=== PATIENT | female | born 1945 | race Caucasian/White ===

== ENCOUNTER 2019-11-17 19:06 | Inpatient (IN) | payer MEDICARE, SELFPAY ==
[2019-11-17 19:21] VITALS: BP 180/123; PULSE 90; RESP 18; TEMP 38.8; O2SAT 95; BMI 29.2
--- NOTE | 2019-11-17 19:34 | ED_ITS ---
Entered by Sushma Saba, acting as scribe for Gilda Minor HPI - General Adult General: Chief complaint: General Medical Stated complaint: BACK PAIN Time Seen by Provider: 11/17/19 19:34 Source: patient and family Mode of arrival: wheelchair History of Present Illness: HPI narrative: 74 y/o female presents to the ED with complaint of back pain. Family states she had lumbar sx at [facility] and was released on Sunday. states she was doing well after sx and was alert and able to walk without assistance Sunday and Sunday. Today she has had increased lethargy/AMS, pain and difficulty ambulating. 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 has been checking her incision site regularly and states it seems to be more red today. MD complaint: Back pain/Post Op Onset (ago): day(s) (today) Location: back Severity: moderate Pain Consistency: constant Relieving factors: none Exacerbating factors: movement Associated symptoms: Deny chest pain, dyspnea, nausea, rash, palpitations, syncope or vomiting Review of Systems General: Reports: other (negative unless marked) Eyes: Denies: change in vision or blurry vision ENMT: Denies: throat pain, painful swallowing, hoarseness, ear pain, ear discharge, Change in hearing or nasal discharge Card: Denies: chest pain, palpitations, irregular heart rhythm, syncope, pre- syncope, shortness of breath on exertion or shortness of breath when lying down Resp: Denies: shortness of breath, productive cough, non-productive cough, wheezing, coughing up blood or chest congestion GI: Denies: abdominal pain, nausea, vomiting, vomiting blood, coffee grounds in vomit, diarrhea, constipation, cramping, blood in stool or black tarry stool : Denies: flank pain, painful urination, urinary frequency, urinary urgency, decreased urine ouput, urinary incontinence or blood in urine Skin/Breast: Denies: rash, skin tenderness or yellow skin Endo: Denies: excessive thirst, tired all the time, cold intolerance, excessive sweating, flushing or hot flashes Raza/Lymph: Denies: easy bruising, easy bleeding, petechiae or enlarged lymph nodes All/Imm: Denies: hives, throat swelling, tongue swelling, facial swelling or acute wheezing PFSH ED PFSH: Social History Smoking and tobacco status: never smoked Physical Exam Const: GENERAL APPEARANCE: well kempt and well developed HENMT: COMMON NORMALS: normocephalic, head/scalp atraumatic, hearing grossly normal bilaterally, external ears normal, EAC's normal, external nose normal and moist oral mucous membranes HEAD & SCALP: normal to inspection, normocephalic and atraumatic FACE & SINUS: normal facial exam and face symmetric NOSE: external nose normal and nares normal EXTERNAL EAR: Yes external ears normal EXTERNAL AUDITORY CANAL: EAC's normal MOUTH: oral and palatal mucosa normal and tongue normal Eye: COMMON NORMALS: PERRL, EOMs intact bilaterally, conjunctivae normal and no scleral icterus GENERAL EYE: normal appearance of both eyes and normal light reflex CONJUNCTIVA: Yes conjunctivae normal SCLERA: sclerae normal CORNEA: Yes corneas normal PUPIL: Yes PERRL DIRECT OPHTHALMOSCOPY: Yes normal light reflex Neck/C-Spine: COMMON NORMALS: full ROM, no lymphadenopathy, supple, no meningeal signs and no JVD GENERAL: Yes normal visual inspection and Yes trachea midline CERVICAL SPINE: Yes cervical ROM normal Chest: COMMONS NORMALS: inspection of chest normal and palpation of chest normal Resp: COMMON NORMALS: normal respiratory effort, no retractions, no use of accessory muscles and clear to auscultation bilaterally EFFORT & INSPECTION: Yes able to speak in complete sentences AUSCULTATION: clear to auscultation bilaterally Cardio: COMMON NORMALS: no JVD, regular rate, regular rhythm, S1 normal heart sound, S2 normal heart sound, no gallops, no clicks, no murmurs and no rub JUGULAR VENOUS DISTENTION: no JVD RATE: regular rate RHYTHM: regular rhythm HEART SOUNDS: S1 normal and S2 normal GI: COMMON NORMALS: soft to palpation, non-tender, no hepatosplenomegaly and no masses INSPECTION: Yes normal to inspection PALPATION: Yes soft and Yes no hepatosplenomegaly Neuro: COMMON NORMALS: CN's II-XII intact bilaterally, moves all extremities, no focal motor deficits and no sensory deficits noted MENINGEAL SIGNS: Yes no meningeal signs Psych: APPEARANCE: Yes well kempt Skin: COMMON NORMALS: no rashes or lesions noted, skin turgor normal, no jaundice, no petechiae and no mottling GENERAL SKIN EXAM: no rashes or lesions noted and turgor normal Course Vital Signs: Vital signs: Vital Signs Temperature 101.9 F H 11/17/19 19:21 Pulse Rate 77 11/18/19 00:10 Respiratory Rate 14 11/18/19 00:10 Blood Pressure 116/62 11/18/19 00:10 Pulse Oximetry 99 11/18/19 00:10 MDM - General Adult MDM Narrative: Medical decision making narrative: Mrs. Whittington is a nice 74-year-old female who comes in with fever and altered mental status. The patient recently had surgery on her back but CT scanning does not reveal any evidence of abscess. The patient's overlying skin looks well without any evidence of cellulitis at this time. The patient is able to ambulate here does not demonstrate any sign of cauda equina type syndrome. The patient denies headache or stiff neck to suggest meningitis. Clinically her chest x-ray looks like possible left perihilar infiltrate. The patient does sound rhonchorous on exam without rails to my examination. Viral syndrome such as flu was even possible. The case was endorsed to Dr. Solorio who agrees to admission. The patient has been covered with broad-spectrum antibiotics including Primaxin and vancomycin. She agrees to admit and further care will be managed by her. Lab Data: Attestation: I reviewed the patient's lab results. Labs: Lab Results 11/17/19 11/17/19 11/17/19 Range/Units 20:16 20:16 20:16 WBC 6.4 (4.0-10.0) 10^3/ uL RBC 2.97 L (4.1-5.3) 10^6/u L Hgb 8.4 L (11.5-15.3) g/dL Hct 26.9 L (37.0-47.0) % MCV 90.6 (81-99) fL MCH 28.3 (28.0-34.0) pg MCHC 31.2 (30.0-36.0) g/dL RDW 17.2 H (12.1-15.1) % Plt Count 247 (130-400) 10^3/c mm MPV 10.8 H (7.4-10.4) fL Total Counted 100 (0-100) Segmented Neutroph ils 66 % Lymphocytes (Manua l) 29 % Monocytes (Manual) 3.0 % Absolute Monocytes 0.2 (0.1-0.6) 10^3/c mm Eosinophils (Manua l) 2 % Absolute Eosinophi ls 0.1 (0.0-0.7) 10^3/c mm Platelet Estimate Normal (Normal) Hypochromasia 1+ H Poikilocytosis 1+ H Anisocytosis 1+ H Ovalocytes 1+ H PT 15.70 H (10.5-13.3) SECO NDS INR 1.21 H (0.8-1.2) Specimen Type Sample Site ABG pH (7.35-7.45) ABG pCO2 (35-45) mmHg ABG pO2 (80.0-100.0) mmH g ABG HCO3 (22-26) mmol/L ABG Base Excess (-2.0-2.0) mmol/ L Jensen Test Hematocrit (37-47) % O2 Delivery Device Brake Operator Helper ID Sodium 140 (136-145) mmol/L Potassium 3.0 L (3.5-5.1) mmol/L Chloride 103 (98-107) mmol/L Carbon Dioxide 24 (22-29) mmol/L Anion Gap 16.0 (5-19) BUN 11 (8-23) mg/dL Creatinine 0.7 (0.5-0.9) mg/dL Glucose 101 (65-115) mg/dL Lactic Acid (0.5-2.2) mmol/L Calcium 8.8 (8.5-10.5) mg/dL Magnesium 1.6 L (1.7-2.3) mg/dL Total Bilirubin 0.7 (0.15-1.2) mg/dL AST 36 H (0-32) U/L ALT 14 (0-33) U/L Alkaline Phosphata se 65 (35-105) IU/L Ammonia (11-51) umol/L Troponin T Baselin e (0-10) ng/mL Troponin T [address] [place] (0-10) ng/mL Delta Troponin T (0-10) ABS# NT-Pro-B Natriuret Pep (0-450) pg/mL Total Protein 5.9 L (6.6-8.7) g/dL Albumin 2.7 L (3.5-5.2) g/dL Globulin 3.2 (1.3-4.6) g/dL Lipase 7 L (13-60) U/L Urine Color (Yellow) Urine Appearance (CLEAR) Urine pH (5-7) Ur Specific Gravit y (1.005-1.030) Urine Protein (Negative) Urine Glucose (UA) (Normal) Urine Ketones (Negative) Urine Occult Blood (Negative) Urine Nitrate (Negative) Urine Bilirubin (NEGATIVE) Urine Urobilinogen (Negative) mg/dL Ur Leukocyte Mckenzie ase (Negative) Urine RBC (0-2) /hpf Urine WBC (0-5) /hpf Ur Squamous Epith Cells (0-5) Urine Bacteria (NONE) Urine Mucus Urine Opiates Scre en (Negative) ng/mL Ur Barbiturates Sc reen (Negative) ng/mL Ur Phencyclidine S crn (Negative) ng/mL Ur Amphetamines Sc reen (Negative) ng/mL U Benzodiazepines Scrn (Negative) ng/mL Urine Cocaine Scre en (Negative) ng/mL U Marijuana (THC) Screen (Negative) ng/mL Influenza Type A A g (Negative) POC Influenza B Ag (Negative) 11/17/19 11/17/19 11/17/19 Range/Units 20:16 20:16 20:16 WBC (4.0-10.0) 10^3/ uL RBC (4.1-5.3) 10^6/u L Hgb (11.5-15.3) g/dL Hct (37.0-47.0) % MCV (81-99) fL MCH (28.0-34.0) pg MCHC (30.0-36.0) g/dL RDW (12.1-15.1) % Plt Count (130-400) 10^3/c mm MPV (7.4-10.4) fL Total Counted (0-100) Segmented Neutroph ils % Lymphocytes (Manua l) % Monocytes (Manual) % Absolute Monocytes (0.1-0.6) 10^3/c mm Eosinophils (Manua l) % Absolute Eosinophi ls (0.0-0.7) 10^3/c mm Platelet Estimate (Normal) Hypochromasia Poikilocytosis Anisocytosis Ovalocytes PT (10.5-13.3) SECO NDS INR (0.8-1.2) Specimen Type Sample Site ABG pH (7.35-7.45) ABG pCO2 (35-45) mmHg ABG pO2 (80.0-100.0) mmH g ABG HCO3 (22-26) mmol/L ABG Base Excess (-2.0-2.0) mmol/ L Jensen Test Hematocrit (37-47) % O2 Delivery Device Brake Operator Helper ID Sodium (136-145) mmol/L Potassium (3.5-5.1) mmol/L Chloride (98-107) mmol/L Carbon Dioxide (22-29) mmol/L Anion Gap (5-19) BUN (8-23) mg/dL Creatinine (0.5-0.9) mg/dL Glucose (65-115) mg/dL Lactic Acid 1.9 (0.5-2.2) mmol/L Calcium (8.5-10.5) mg/dL Magnesium (1.7-2.3) mg/dL Total Bilirubin (0.15-1.2) mg/dL AST (0-32) U/L ALT (0-33) U/L Alkaline Phosphata se (35-105) IU/L Ammonia 18 (11-51) umol/L Troponin T Baselin e 33 H (0-10) ng/mL Troponin T 120 [address] [place] (0-10) ng/mL Delta Troponin T (0-10) ABS# NT-Pro-B Natriuret Pep (0-450) pg/mL Total Protein (6.6-8.7) g/dL Albumin (3.5-5.2) g/dL Globulin (1.3-4.6) g/dL Lipase (13-60) U/L Urine Color (Yellow) Urine Appearance (CLEAR) Urine pH (5-7) Ur Specific Gravit y (1.005-1.030) Urine Protein (Negative) Urine Glucose (UA) (Normal) Urine Ketones (Negative) Urine Occult Blood (Negative) Urine Nitrate (Negative) Urine Bilirubin (NEGATIVE) Urine Urobilinogen (Negative) mg/dL Ur Leukocyte Mckenzie ase (Negative) Urine RBC (0-2) /hpf Urine WBC (0-5) /hpf Ur Squamous Epith Cells (0-5) Urine Bacteria (NONE) Urine Mucus Urine Opiates Scre en (Negative) ng/mL Ur Barbiturates Sc reen (Negative) ng/mL Ur Phencyclidine S crn (Negative) ng/mL Ur Amphetamines Sc reen (Negative) ng/mL U Benzodiazepines Scrn (Negative) ng/mL Urine Cocaine Scre en (Negative) ng/mL U Marijuana (THC) Screen (Negative) ng/mL Influenza Type A A g (Negative) POC Influenza B Ag (Negative) 11/17/19 11/17/19 11/17/19 Range/Units 20:16 20:33 20:38 WBC (4.0-10.0) 10^3/ uL RBC (4.1-5.3) 10^6/u L Hgb (11.5-15.3) g/dL Hct (37.0-47.0) % MCV (81-99) fL MCH (28.0-34.0) pg MCHC (30.0-36.0) g/dL RDW (12.1-15.1) % Plt Count (130-400) 10^3/c mm MPV (7.4-10.4) fL Total Counted (0-100) Segmented Neutroph ils % Lymphocytes (Manua l) % Monocytes (Manual) % Absolute Monocytes (0.1-0.6) 10^3/c mm Eosinophils (Manua l) % Absolute Eosinophi ls (0.0-0.7) 10^3/c mm Platelet Estimate (Normal) Hypochromasia Poikilocytosis Anisocytosis Ovalocytes PT (10.5-13.3) SECO NDS INR (0.8-1.2) Specimen Type Arterial Sample Site Radial, right ABG pH 7.48 H (7.35-7.45) ABG pCO2 35.6 (35-45) mmHg ABG pO2 62.0 L (80.0-100.0) mmH g ABG HCO3 26.5 H (22-26) mmol/L ABG Base Excess 2.9 H (-2.0-2.0) mmol/ L Jensen Test Pos Hematocrit 26.5 L (37-47) % O2 Delivery Device Room air Brake Operator Helper ID ellpe Sodium (136-145) mmol/L Potassium (3.5-5.1) mmol/L Chloride (98-107) mmol/L Carbon Dioxide (22-29) mmol/L Anion Gap (5-19) BUN (8-23) mg/dL Creatinine (0.5-0.9) mg/dL Glucose (65-115) mg/dL Lactic Acid (0.5-2.2) mmol/L Calcium (8.5-10.5) mg/dL Magnesium (1.7-2.3) mg/dL Total Bilirubin (0.15-1.2) mg/dL AST (0-32) U/L ALT (0-33) U/L Alkaline Phosphata se (35-105) IU/L Ammonia (11-51) umol/L Troponin T Baselin e (0-10) ng/mL Troponin T 120 [address] [place] (0-10) ng/mL Delta Troponin T (0-10) ABS# NT-Pro-B Natriuret Pep 39562 H (0-450) pg/mL Total Protein (6.6-8.7) g/dL Albumin (3.5-5.2) g/dL Globulin (1.3-4.6) g/dL Lipase (13-60) U/L Urine Color Brown (Yellow) Urine Appearance Cloudy (CLEAR) Urine pH 5 (5-7) Ur Specific Gravit y 1.020 (1.005-1.030) Urine Protein Trace (Negative) Urine Glucose (UA) Norm (Normal) Urine Ketones 1+ H (Negative) Urine Occult Blood Trace H (Negative) Urine Nitrate Negative (Negative) Urine Bilirubin 1+ H (NEGATIVE) Urine Urobilinogen Norm (Negative) mg/dL Ur Leukocyte Mckenzie ase Negative (Negative) Urine RBC 10-15 H (0-2) /hpf Urine WBC 0-4 H (0-5) /hpf Ur Squamous Epith Cells None (0-5) Urine Bacteria 1+ H (NONE) Urine Mucus 2+ Urine Opiates Scre en (Negative) ng/mL Ur Barbiturates Sc reen (Negative) ng/mL Ur Phencyclidine S crn (Negative) ng/mL Ur Amphetamines Sc reen (Negative) ng/mL U Benzodiazepines Scrn (Negative) ng/mL Urine Cocaine Scre en (Negative) ng/mL U Marijuana (THC) Screen (Negative) ng/mL Influenza Type A A g (Negative) POC Influenza B Ag (Negative) 11/17/19 11/17/19 11/17/19 Range/Units 20:38 20:39 22:04 WBC (4.0-10.0) 10^3/ uL RBC (4.1-5.3) 10^6/u L Hgb (11.5-15.3) g/dL Hct (37.0-47.0) % MCV (81-99) fL MCH (28.0-34.0) pg MCHC (30.0-36.0) g/dL RDW (12.1-15.1) % Plt Count (130-400) 10^3/c mm MPV (7.4-10.4) fL Total Counted (0-100) Segmented Neutroph ils % Lymphocytes (Manua l) % Monocytes (Manual) % Absolute Monocytes (0.1-0.6) 10^3/c mm Eosinophils (Manua l) % Absolute Eosinophi ls (0.0-0.7) 10^3/c mm Platelet Estimate (Normal) Hypochromasia Poikilocytosis Anisocytosis Ovalocytes PT (10.5-13.3) SECO NDS INR (0.8-1.2) Specimen Type Sample Site ABG pH (7.35-7.45) ABG pCO2 (35-45) mmHg ABG pO2 (80.0-100.0) mmH g ABG HCO3 (22-26) mmol/L ABG Base Excess (-2.0-2.0) mmol/ L Jensen Test Hematocrit (37-47) % O2 Delivery Device Brake Operator Helper ID Sodium (136-145) mmol/L Potassium (3.5-5.1) mmol/L Chloride (98-107) mmol/L Carbon Dioxide (22-29) mmol/L Anion Gap (5-19) BUN (8-23) mg/dL Creatinine (0.5-0.9) mg/dL Glucose (65-115) mg/dL Lactic Acid (0.5-2.2) mmol/L Calcium (8.5-10.5) mg/dL Magnesium (1.7-2.3) mg/dL Total Bilirubin (0.15-1.2) mg/dL AST (0-32) U/L ALT (0-33) U/L Alkaline Phosphata se (35-105) IU/L Ammonia (11-51) umol/L Troponin T Baselin e (0-10) ng/mL Troponin T [address] [place] 32.21 H (0-10) ng/mL Delta Troponin T -0.79 L (0-10) ABS# NT-Pro-B Natriuret Pep (0-450) pg/mL Total Protein (6.6-8.7) g/dL Albumin (3.5-5.2) g/dL Globulin (1.3-4.6) g/dL Lipase (13-60) U/L Urine Color (Yellow) Urine Appearance (CLEAR) Urine pH (5-7) Ur Specific Gravit y (1.005-1.030) Urine Protein (Negative) Urine Glucose (UA) (Normal) Urine Ketones (Negative) Urine Occult Blood (Negative) Urine Nitrate (Negative) Urine Bilirubin (NEGATIVE) Urine Urobilinogen (Negative) mg/dL Ur Leukocyte Mckenzie ase (Negative) Urine RBC (0-2) /hpf Urine WBC (0-5) /hpf Ur Squamous Epith Cells (0-5) Urine Bacteria (NONE) Urine Mucus Urine Opiates Scre en Negative (Negative) ng/mL Ur Barbiturates Sc reen Negative (Negative) ng/mL Ur Phencyclidine S crn 26 (Negative) ng/mL Ur Amphetamines Sc reen Negative (Negative) ng/mL U Benzodiazepines Scrn Negative (Negative) ng/mL Urine Cocaine Scre en Negative (Negative) ng/mL U Marijuana (THC) Screen Negative (Negative) ng/mL Influenza Type A A g Negative (Negative) POC Influenza B Ag Negative (Negative) Imaging Data^: CXR: Radiologist's impression: [address] [address] XRay Report Signed Patient: Sofia Whittington #: [id number] : 3Acct#:[id number] Age/Sex: 74 / FADM Date: 11/17/19 Loc: ERRoom/Bed: Attending Dr: Ordering Provider/Ordering MD: Gilda Minor DO Date of Service: 11/17/19 Procedure(s): XR chest 1V portable [id number] Accession Number(s): [id number] Report Number: [id number] PROCEDURE INFORMATION: Exam: XR Chest, 1 View Exam date and time: 11/17/2019 9:27 PM Age: 74 years old Clinical indication: Shortness of breath; Additional info: Cough TECHNIQUE: Imaging protocol: XR of the chest Views: 1 view. COMPARISON: CR Chest 2 views* [id number] 09/26/2017 2:44 PM FINDINGS: Lungs: There is mild pulmonary venous congestion. No focal infiltrate is identified. Pleural space: There may be a small left pleural effusion. Heart/Mediastinum: There is mild cardiomegaly. Bones/joints: There are degenerative changes in the thoracic spine. XR/XR chest 1V portable [id number] IMPRESSION: Cardiomegaly and mild congestive failure. CT Head: Radiologist's impression: [address] [address] [address] Scan Report Signed Patient: Sofia Whittington #: [id number] : 1945Acct#:[id number] Age/Sex: 74 / FADM Date: 11/17/19 Loc: ERRoom/Bed: Attending Dr: Ordering Provider/Ordering MD: Gilda Minor DO Date of Service: 11/17/19 Procedure(s): CT head wo con* [id number] Accession Number(s): [id number] Report Number: [id number] PROCEDURE INFORMATION: Exam: CT Head Without Contrast Exam date and time: 11/17/2019 7:46 PM Age: 74 years old Clinical indication: Altered mental status/memory loss; Patient HX: Lethargy, fever, AMS; Additional info: Jones/ams TECHNIQUE: Imaging protocol: Computed tomography of the head without contrast. Total DLP: 771.62 mGy-cm Radiation optimization: All CT scans at this facility use at least one of these dose optimization techniques: automated exposure control; mA and/or kV adjustment per patient size (includes targeted exams where dose is matched to clinical indication); or iterative reconstruction. COMPARISON: No relevant prior studies available. FINDINGS: Brain: There is some focal dystrophic calcification in the right frontal lobe in an area of focal encephalomalacia which could be related to a remote brain insult. Correlation with clinical history is suggested. There are physiologic calcifications in the basal ganglia. There is mild atrophy. There is no intracranial mass or hemorrhage. Midline shift: There is no shift of midline structures. Ventricles: Normal. No ventriculomegaly. Bones/joints: Unremarkable. No acute fracture. Sinuses: Visualized sinuses are unremarkable. No fluid levels. Mastoid air cells: Visualized mastoid air cells are well aerated. Soft tissues: Unremarkable. CT/CT head wo con* [id number] IMPRESSION: 1. Chronic changes in the right frontal lobe which could be related to prior injury or remote infarct. 2. No acute intracranial finding. Radiation Dose CTDIVOL = (mGy): DLP = 771.62 (mGy-cm) CT Lspine: Radiologist's impression: [address] [address] [address] Scan Report Signed Patient: Sofia Whittington #: [id number] : 1945cct#:[id number] Age/Sex: 74 / FADM Date: 11/17/19 Loc: ERRoom/Bed: Attending Dr: Ordering Provider/Ordering MD: Gilda Minor DO Date of Service: 11/17/19 Procedure(s): CT lumbar spine w con [id number] Accession Number(s): [id number] Report Number: [id number] PROCEDURE INFORMATION: Exam: CT Lumbar Spine With Contrast Exam date and time: 11/17/2019 7:46 PM Age: 74 years old Clinical indication: Low back pain; Prior surgery; Surgery date: 3-7 days post-operative; Patient HX: Recent l4-5 fusion now w pain - fever - lethargy - unable to walk; Additional info: Pain, recent surgery TECHNIQUE: Imaging protocol: Computed tomography images of the lumbar spine with intravenous contrast. Total DLP: 3735.24 mGy-cm Radiation optimization: All CT scans at this facility use at least one of these dose optimization techniques: automated exposure control; mA and/or kV adjustment per patient size (includes targeted exams where dose is matched to clinical indication); or iterative reconstruction. Contrast material: OMNI 300; Contrast volume: 95 ml; Contrast route: 18G; COMPARISON: [place] [id number] 11/02/2017 3:25 PM FINDINGS: Vertebrae: No acute fracture. Normal alignment. L1-L2: L1-L2 level remains unremarkable. L2-L3: Severe narrowing of the L2-L3 disc space with mild posterior osteophyte formation is not significantly changed. L3-L4: There is also mild disc bulging at L3-L4 with some hypertrophic degenerative change in the facet joints with mild medial spur formation causing mild stenosis not significantly changed from previous. L4-L5: There is PLIF at L4-L5 with instrumentation within the disc space and bilateral pedicle screws in the pedicles at L4 and L5. There is also been some resection of the spurring from the facet joints at L4-L5 with improvement in the previously seen spinal stenosis. L5-S1: There is degenerative change change at L5-S1 with severe disc space narrowing and sclerosis of the adjacent endplates and posterior disc bulging which encroaches upon the neural foramina more on the right than on the left is again seen and is unchanged. Soft tissues: There are bilateral small fluid collections in the posterior paraspinous regions at the surgical levels as well as in the subcutaneous fat. Subcutaneous collection on the left measures 2.9 x 2.8 by 5.1 cm and contains a few bubbles of gas. This is consistent with small postoperative hematoma or seroma and is not an unexpected finding. The collection on the right measures approximately 3.5 x 1.6 by 5.0 cm and also contains a few bubbles of gas. Neither of these collections demonstrates unusual enhancement. No unexpected hematoma or fluid collection is demonstrated. There is nothing to suggest presence of abscess. CT/CT lumbar spine w con [id number] IMPRESSION: 1. Degenerative and postsurgical changes in the lumbar spine. 2. Small postoperative hematomas or seromas without evidence of abscess Radiation Dose CTDIVOL = (mGy): DLP = 3735.24 (mGy-cm) EKG Data^: EKG 1: Attestation: I personally reviewed and interpreted this EKG as follows: EKG interpretation date: 11/17/19 EKG interpretation time: 20:27 Interpretation: Normal sinus rhythm at 87 beats a minute, ST depression laterally in 1, aVL and V4 through V6, normal intervals, normal QTC. Computer generated interpretation: Chest X-Ray 11/17/19 19:41 IMPRESSION: Cardiomegaly and mild congestive failure. Head CT 11/17/19 19:41 IMPRESSION: 1. Chronic changes in the right frontal lobe which could be related to prior injury or remote infarct. 2. No acute intracranial finding. Radiation Dose CTDIVOL = (mGy): DLP = 771.62 (mGy-cm) Lumbar Spine CT 11/17/19 19:41 IMPRESSION: 1. Degenerative and postsurgical changes in the lumbar spine. 2. Small postoperative hematomas or seromas without evidence of abscess Radiation Dose CTDIVOL = (mGy): DLP = 3735.24 (mGy-cm) Discharge Plan Discharge Patient Disposition: Placed in Observation Clinical Impression: Sepsis Qualifiers: Sepsis type: sepsis due to unspecified organism Sepsis acute organ dysfunction status: unspecified Qualified Code(s): A41.9 - Sepsis, unspecified organism Condition: Stable Referrals: Henrik oFss, [Primary Care Provider] - Coding Level of Care Code ED Solution Analyst for Chg Fwd Exam Comprehensive The documentation recorded by the Jayant carr Ashley, accurately reflects the service I personally performed and the decisions made by Mily aguirre Eli N
--- NOTE | 2019-11-17 19:41 | CTR_ITS ---
PROCEDURE INFORMATION: Exam: CT Head Without Contrast Exam date and time: 11/17/2019 7:46 PM Age: 74 years old Clinical indication: Altered mental status/memory loss; Patient HX: Lethargy, fever, AMS; Additional info: Jones/ams TECHNIQUE: Imaging protocol: Computed tomography of the head without contrast. Total DLP: 771.62 mGy-cm Radiation optimization: All CT scans at this facility use at least one of these dose optimization techniques: automated exposure control; mA and/or kV adjustment per patient size (includes targeted exams where dose is matched to clinical indication); or iterative reconstruction. COMPARISON: No relevant prior studies available. FINDINGS: Brain: There is some focal dystrophic calcification in the right frontal lobe in an area of focal encephalomalacia which could be related to a remote brain insult. Correlation with clinical history is suggested. There are physiologic calcifications in the basal ganglia. There is mild atrophy. There is no intracranial mass or hemorrhage. Midline shift: There is no shift of midline structures. Ventricles: Normal. No ventriculomegaly. Bones/joints: Unremarkable. No acute fracture. Sinuses: Visualized sinuses are unremarkable. No fluid levels. Mastoid air cells: Visualized mastoid air cells are well aerated. Soft tissues: Unremarkable. CT/CT head wo con* [id number] IMPRESSION: 1. Chronic changes in the right frontal lobe which could be related to prior injury or remote infarct. 2. No acute intracranial finding. Radiation Dose CTDIVOL = (mGy): DLP = 771.62 (mGy-cm)
--- NOTE | 2019-11-17 19:41 | XRR_ITS ---
PROCEDURE INFORMATION: Exam: XR Chest, 1 View Exam date and time: 11/17/2019 9:27 PM Age: 74 years old Clinical indication: Shortness of breath; Additional info: Cough TECHNIQUE: Imaging protocol: XR of the chest Views: 1 view. COMPARISON: CR Chest 2 views* [id number] 09/26/2017 2:44 PM FINDINGS: Lungs: There is mild pulmonary venous congestion. No focal infiltrate is identified. Pleural space: There may be a small left pleural effusion. Heart/Mediastinum: There is mild cardiomegaly. Bones/joints: There are degenerative changes in the thoracic spine. XR/XR chest 1V portable [id number] IMPRESSION: Cardiomegaly and mild congestive failure.
--- NOTE | 2019-11-17 19:41 | CTR_ITS ---
PROCEDURE INFORMATION: Exam: CT Lumbar Spine With Contrast Exam date and time: 11/17/2019 7:46 PM Age: 74 years old Clinical indication: Low back pain; Prior surgery; Surgery date: 3-7 days post-operative; Patient HX: Recent l4-5 fusion now w pain - fever - lethargy - unable to walk; Additional info: Pain, recent surgery TECHNIQUE: Imaging protocol: Computed tomography images of the lumbar spine with intravenous contrast. Total DLP: 3735.24 mGy-cm Radiation optimization: All CT scans at this facility use at least one of these dose optimization techniques: automated exposure control; mA and/or kV adjustment per patient size (includes targeted exams where dose is matched to clinical indication); or iterative reconstruction. Contrast material: OMNI 300; Contrast volume: 95 ml; Contrast route: 18G; COMPARISON: [place] [id number] 11/02/2017 3:25 PM FINDINGS: Vertebrae: No acute fracture. Normal alignment. L1-L2: L1-L2 level remains unremarkable. L2-L3: Severe narrowing of the L2-L3 disc space with mild posterior osteophyte formation is not significantly changed. L3-L4: There is also mild disc bulging at L3-L4 with some hypertrophic degenerative change in the facet joints with mild medial spur formation causing mild stenosis not significantly changed from previous. L4-L5: There is PLIF at L4-L5 with instrumentation within the disc space and bilateral pedicle screws in the pedicles at L4 and L5. There is also been some resection of the spurring from the facet joints at L4-L5 with improvement in the previously seen spinal stenosis. L5-S1: There is degenerative change change at L5-S1 with severe disc space narrowing and sclerosis of the adjacent endplates and posterior disc bulging which encroaches upon the neural foramina more on the right than on the left is again seen and is unchanged. Soft tissues: There are bilateral small fluid collections in the posterior paraspinous regions at the surgical levels as well as in the subcutaneous fat. Subcutaneous collection on the left measures 2.9 x 2.8 by 5.1 cm and contains a few bubbles of gas. This is consistent with small postoperative hematoma or seroma and is not an unexpected finding. The collection on the right measures approximately 3.5 x 1.6 by 5.0 cm and also contains a few bubbles of gas. Neither of these collections demonstrates unusual enhancement. No unexpected hematoma or fluid collection is demonstrated. There is nothing to suggest presence of abscess. CT/CT lumbar spine w con [id number] IMPRESSION: 1. Degenerative and postsurgical changes in the lumbar spine. 2. Small postoperative hematomas or seromas without evidence of abscess Radiation Dose CTDIVOL = (mGy): DLP = 3735.24 (mGy-cm)
--- NOTE | 2019-11-17 19:45 | ECG_ITS ---
Measurements Intervals [place] Rate: 87 P: 76 NC: 150 QRS: -15 QRSD: 98 T: 55 QT: 369 QTc: 446 SINUS RHYTHM WITH SINUS ARRHYTHMIA NONSPECIFIC ST & T-WAVE ABNORMALITY No previous ECG available for comparison Electronically Signed On 11-18-2019 17:08:16 SPANISH LINGUIST by Meghan Stout M.D. [id number]
[2019-11-17 20:27] LABS: Hematocrit 26.9 % (37.0-47.0); Hemoglobin 8.4 g/dL (11.5-15.3); Mean Corpuscular HGB Conc 31.2 g/dL (30.0-36.0); Mean Corpuscular Hemoglobin 28.3 pg (28.0-34.0); Mean Corpuscular Volume 90.6 fL (81-99); Mean Platelet Volume 10.8 fL (7.4-10.4); Platelet Count 247 10^3/cmm (130-400); Red Blood Count 2.97 10^6/uL (4.1-5.3); Red Cell Distribution Width 17.2 % (12.1-15.1); White Blood Count 6.4 10^3/uL (4.0-10.0)
[2019-11-17 20:38] LABS: Alanine Aminotransferase 14 U/L (0-33); Albumin Level 2.7 g/dL (3.5-5.2); Alkaline Phosphatase 65 IU/L (35-105); Aspartate Amino Transferase 36 U/L (0-32); Blood Urea Nitrogen 11 mg/dL (8-23); Calcium 8.8 mg/dL (8.5-10.5); Carbon Dioxide 24 mmol/L (22-29); Chloride 103 mmol/L (98-107); Globulin 3.2 g/dL (1.3-4.6); Glucose 101 mg/dL (65-115); Lipase 7 U/L (13-60); Magnesium 1.6 mg/dL (1.7-2.3); Sodium 140 mmol/L (136-145); Total Bilirubin 0.7 mg/dL (0.15-1.2); Total Protein 5.9 g/dL (6.6-8.7)
[2019-11-17 20:39] LABS: Lactic Sepsis W/Reflex 1.9 mmol/L (0.5-2.2)
[2019-11-17 20:40] LABS: Ammonia 18 umol/L (11-51)
[2019-11-17 20:41] LABS: Troponin(5th) Baseline 33 ng/mL (0-10)
[2019-11-17 20:46] LABS: Anisocytosis 1+; Hypochromasia 1+; Ovalocytes 1+; Platelet Estimate Normal (Normal); Poikilocytosis 1+; Total Cells Counted 100 (0-100)
[2019-11-17 20:49] VITALS: BP 179/107; PULSE 87; RESP 19; O2SAT 95
[2019-11-17 20:49] LABS: Absolute Eosinophils 0.1 10^3/cmm (0.0-0.7); Absolute Segmented Neutrophil 4.2 10/cmm (1.6-7.1); Eosinophils 2 %; Lymphocytes 29 %; Monocytes Absolute 0.2 10^3/cmm (0.1-0.6); Segmented Neutrophils 66 %
[2019-11-17 21:00] LABS: INR 1.21 (0.8-1.2)
[2019-11-17 21:02] LABS: Bilirubin Urine 1+ (NEGATIVE); Blood Urine Trace (Negative); Glucose Urine UA Norm (Normal); Ketones Urine 1+ (Negative); Leukocyte Esterase Urine Negative (Negative); Nitrate Urine Negative (Negative); Protein Urine Trace (Negative); Urine Appearance Cloudy (CLEAR); Urine Color Brown (Yellow); Urobilinogen Urine Norm (Negative); pH Urine 5 (5-7)
[2019-11-17 21:04] LABS: Mucus Urine 2+; WBC Urine 0-4 /hpf (0-5)
[2019-11-17 21:05] LABS: Bacteria Urine 1+
[2019-11-17 21:12] LABS: ABG PCO2 35.6 mmHg (35-45); ABG PH Result 7.48 (7.35-7.45); Arterial Blood Gas Hematocrit 26.5 % (37-47); Base Excess ABG 2.9 mmol/L (-2.0-2.0); Blood Gas Allen Test Pos; Blood Gas Sample Site Radial, right; Blood Gas Sample Type Arterial; HCO3 ABG 26.5 mmol/L (22-26); Oxygen Device ROOM AIR
[2019-11-17 21:20] LABS: Amphetamines Screen Urine Negative (Negative); Barbiturates Screen Urine Negative (Negative); Benzodiazepines Screen Urine Negative (Negative); Cocaine Screen Urine Negative (Negative); Opiate Screen Urine Negative (Negative); PCP Screen Urine 26 ng/mL (Negative); THC Screen Urine Negative (Negative)
[2019-11-17 21:20] LABS: Influenza A by IFA Negative (Negative)
[2019-11-17 21:21] LABS: Influenza B by IFA Negative (Negative)
[2019-11-17] MEDS: ondansetron 2 mg/ML SDV 2 mL 4 MG IVP (21:44)
[2019-11-17] MEDS: sodium chloride 0.9% 2,041.17 ML 2041.2 ML IV (21:45)
--- NOTE | 2019-11-17 21:45 | ECG_ITS ---
Measurements Intervals [place] Rate: 95 P: 64 KS: 152 QRS: -16 QRSD: 104 T: 47 QT: 354 QTc: 445 SINUS RHYTHM WITH SINUS ARRHYTHMIA NONSPECIFIC ST & T-WAVE ABNORMALITY No previous ECG available for comparison Electronically Signed On 11-18-2019 18:04:58 MACHINE PULLER AND LASTER by Meghan Stout M.D. [id number]
[2019-11-17] MEDS: iohexol 300 mg/mL 100 mL Btl IV (21:50)
[2019-11-17 22:16] VITALS: PULSE 92; RESP 18; O2SAT 100
[2019-11-17 22:23] LABS: Troponin 5 2HR 32.21 ng/mL (0-10)
[2019-11-17 22:24] VITALS: RESP 18; O2SAT 98
[2019-11-17] MEDS: morphine 4 mg/mL SDV 1 mL IVP (22:24)
[2019-11-17 22:26] LABS: Troponin 5 2HR Delta -0.79 ABS# (0-10)
[2019-11-17 22:48] LABS: NT Pro B Type Natriuretic Pept 11298 pg/mL (0-450)
[2019-11-17] MEDS: magnesium sulfate premix 2 GM/50 ML PIGGYBACK IV (23:07)
[2019-11-17 23:17] VITALS: BP 138/70; PULSE 83; RESP 16; O2SAT 98
[2019-11-17 23:57] VITALS: BP 122/66; PULSE 81; RESP 14; O2SAT 100
[2019-11-18] VITALS (12 sets, daily range): BP systolic 116–163; BP diastolic 62–84; PULSE 74–83; RESP 14–18; TEMP 36.6–37.2; O2SAT 92–99
--- NOTE | 2019-11-18 00:23 | PM.HP ---
Providers/Chief Complaint Admitting Physician: Mojgan Solorio MD Primary Care Provider: Henrik Foss DO Chief Complaint: BACK PAIN History of Present Illness Sofia Whittington is a 74 year old female with a past medical history of fibromyalgia, lupus, unspecified brain lesions of unclear etiology which first appeared about 10 years ago and underwent work-up at [facility] and [facility]. Per at bedside work-up was negative for malignancy, she has been on steroids for the past several years most recently prednisone 10 mg once a week until 6 months ago which appears to have shrunk the lesions. She was taken off the prednisone eventually 6 months ago in order to undergo surgery for lumbar stenosis and disc protrusion. This surgery kept getting delayed but eventually patient was able to get lumbar surgery (per report appears to be laminectomy and spinal fusion) this past Sunday(today is Sunday). Patient was discharged home on Sunday in her usual state of health. She does have significant short-term memory impairment because of above brain lesions. Surgery was uneventful except for postoperative hypotension which resolved.. Starting Sunday morning the noted her to be increasingly lethargic. Patient had been in significant pain and she was getting oxycodone at home. She then developed fever in the afternoon up to 102 Fahrenheit so she visited her primary care doctor who referred her to the emergency room. has been checking her incision site regularly and has not seen any purulent discharge. He has not noticed her to be coughing or otherwise have any URI type symptoms. She has not had any diarrhea nausea or vomiting. She did not complain of any burning micturition. She did not complain of any chest pain or dyspnea. History is not obtainable directly from the patient as she is asleep though wakes up on calling name. She did receive 1 mg of IV morphine. Per report from the ED, she was earlier noted to be more awake and was seen to be ambulating in her room. She denied any headache or neck pain. No history of seizures or loss of consciousness. Diagnostics in the ED have thus far included a CT of the head which showed chronic changes in the right frontal lobe including areas of focal encephalomalacia related to a remote brain insult. No acute intracranial finding was noted. CT of the lumbar spine with contrast showed small postoperative hematomas or seromas without any evidence of abscess. Chest x-ray showed cardiomegaly without any gross pneumonia infiltrates. UA is negative to suggest UTI. T-max here has been 101.9 Fahrenheit. She has remained hemodynamically stable. She is saturating between 92 to 96% on room air. ABG did not show any hypercapnia. White blood cell count is normal at 6.4. Renal and liver function are within normal range. Influenza a and B is negative. Review of Systems General: Reports: 10 or more systems reviewed and unremarkable except in HPI and below Const: Reports: fever; Denies: chills or body aches Eyes: Denies: change in vision, blurry vision or photophobia ENMT: Reports: hoarseness; Denies: throat pain, enlarged tonsils, painful swallowing or nasal congestion Card: Denies: chest pain, palpitations, irregular heart rhythm, edema, swelling of feet/ankles, lightheadedness, pre-syncope, shortness of breath on exertion or shortness of breath when lying down Resp: Denies: shortness of breath, productive cough, non-productive cough, wheezing, stridor, pain on inspiration, change in phlegm color, coughing up blood or chest congestion GI: Denies: abdominal pain, nausea, vomiting, vomiting blood, coffee grounds in vomit, difficulty swallowing, heartburn/indigestion, diarrhea, constipation, cramping, change in stool character, blood in stool or black tarry stool : Denies: flank pain, difficulty urinating, painful urination, urinary frequency, urinary urgency, urinary hesitancy or blood in urine Musc: Denies: neck pain, back pain, extremity pain, joint swelling, joint warmth or deformity Neuro: Denies: headache, numbness in extremities, weakness in extremities, changes in sensation, difficulty walking, frequent falls, dizziness, vertigo, behavioral changes, slurred speech or seizure-like activity Psych: Denies: anxiety, depression, suicidal ideation or homicidal ideation Endo: Denies: excessive urination, excessive thirst, tired all the time, cold intolerance or hot flashes Raza/Lymph: Denies: easy bruising or easy bleeding Medications/Allergies Home Medications Medication Instructions Recorded Confirmed Last Taken Type donepezil 10 mg PO DAILY 11/17/19 11/17/19 11/16/19 History gabapentin 300 mg PO BEDTIME 11/17/19 11/17/19 11/16/19 History gabapentin 600 mg PO DAILY 11/17/19 11/18/19 11/17/19 History memantine 10 mg PO BID 11/17/19 11/17/19 11/17/19 History omeprazole 20 mg PO BID 11/17/19 11/17/19 11/17/19 History oxycodone-acetaminophen 1 tab PO Q4H PRN 11/17/19 11/17/19 11/17/19 History pravastatin 20 mg PO DAILY 11/17/19 11/17/19 11/16/19 History propranolol 60 mg PO DAILY 11/17/19 11/17/19 11/17/19 History Allergies Allergy/AdvReac Type Severity Reaction Status Date / Time adhesive tape Allergy Unknown Verified 11/17/19 19:29 amoxicillin Allergy Unknown Verified 11/17/19 19:29 lorazepam [From Ativan] Allergy Unknown Verified 11/17/19 19:29 miconazole [From Monistat 7] Allergy Unknown Verified 11/17/19 19:29 midazolam Allergy Unknown Verified 11/17/19 19:29 Penicillins Allergy Unknown Verified 11/17/19 19:29 propofol Allergy Unknown Verified 11/17/19 19:29 titanium Allergy Unknown Verified 11/17/19 19:29 PFSH Acute PFSH: Medical History (Updated 11/18/19 @ 02:35 by Mojgan Solorio MD) Brain mass Dementia Fibromyalgia Lupus Surgical History (Updated 11/18/19 @ 02:32 by Mojgan Solorio MD) S/P lumbar fusion Social History Smoking and tobacco status: never smoked Supplemental PFSH Information: 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 B/L basal crepts+ Abd: Soft, nt/nd , bs+ SENIOR MARKETING ANALYST: drowsy, wakes up to calling name, answers simple questions with yes or no, moves B?L upper extremities while laying in bed Urinary Catheter Management^: John: Cath Placed During This Visit: yes Urethral Indwelling: No Urinary Catheter Date of Insertion: 11/17/19 Urinary Catheter Time of Insertion: 20:42 Data : 11/17/19 20:16 11/17/19 20:16 Micro: Microbiology 11/17/19 20:48 Blood Culture - Preliminary Blood SPECIMEN COLLECTED 11/17/19 20:16 Blood Culture - Preliminary Blood SPECIMEN COLLECTED A&P Assessment and plan (1) Anemia: Status: Acute Code(s): D64.9 - Anemia, unspecified (2) Dementia: Status: Acute Code(s): F03.90 - Unspecified dementia without behavioral disturbance (3) S/P lumbar fusion: Status: Acute Code(s): Z98.1 - Arthrodesis status (4) Brain mass: Status: Acute Code(s): G93.89 - Other specified disorders of brain (5) Fibromyalgia: Status: Acute Code(s): M79.7 - Fibromyalgia Additional A&P Information 1. Altered mental status presenting as increased lethargy through the day. Suspect that opiates may have contributed to the clinical picture. Per patient's she does not normally take pain medications at home and at this time she had received 3 doses of oxycodone since discharge home. She had been more awake earlier today and was even seen to be ambulating, now sleep since receiving morphine after her CAT scan caused her to be in increased pain. Given that patient also has fever, possibility of meningitis cannot be completely excluded at this time though the nature of her surgery does not particularly increase the risk of meningitis as ascending infection is rare. Patient denies any headache and has no neck stiffness. Mental status additionally has been waxing and waning through the day which appears less consistent with meningitis. However if patient does not show significant improvement she may need an LP eventually. It was deferred for now given technical difficulties due to patient positioning, presence of hardware in the lumbar region and an area of entry for LP would be over her incision site which may increase the risk of infection into an otherwise sterile CSF space. Less likely to have postop adrenal crisis given that she has been off steroids for over 6 months now and even prior had only been on prednisone 10 mg once a week. Additionally she remains hemodynamically stable and without any hyperkalemia or hyponatremia. We will check a.m. cortisol to rule out. We will check TSH to rule out myxedema. 2. Fever in recently postop patient. Blood cultures have been sent from the ED. Chest x-ray is without any gross infiltrates to suggest pneumonia. No atelectasis mentioned. UA with negative nitrite leuk esterase, 0-4 WBC therefore less consistent with UTI. However per she did had vulvovaginal candidiasis prior to surgery for which she received antifungal treatment and had preop antibiotic prophylaxis. Urine culture has been sent. Her wound site does not appear to have any gross cellulitic changes. Started empirically on imipenem due to history of allergy to penicillin and cephalosporins which has been describes as severe skin itching and rash. Also currently empirically on vancomycin. 3. Patient does not have any history of CHF in the past however today there are bilateral rails on exam, 1+ pitting edema, PO2 60 on ABG and a grossly elevated BNP with chest x-ray suggesting mild CHF. Serial troponins are negative without appreciable delta. Less likely to be having an acute cardiac event. Given that patient was hypotensive postoperatively she may have received aggressive fluid resuscitation which may explain the above findings. Lasix 20 mg IV now 4. Hold home dose of donepezil and memantine for now 5. NPO until fully awake and passes bedside swallow screen DVT ppx: heparin Full code. this was discussed with . would not want prolonged life support if does end up needing mechanical ventilation. Attestations Medical Necessity Statement*: Anticipate > 2MN for w/up of post op fever, lethargy Coding Level of Care Code Acute Combustion Analyst for g Fwd Diagnoses Anemia D64.9 Dementia F03.90 S/P lumbar fusion Z98.1 Brain mass G93.89 Fibromyalgia M79.7
[2019-11-18 01:06] LABS: NT Pro B Type Natriuretic Pept 11750 pg/mL (0-450); Thyroid Stimulating Hormone 3.31 uIU/mL (0.27-4.20)
[2019-11-18] MEDS: heparin 5,000 unit/mL INJ 1 mL 5000 UNIT SUBCUT (01:22)
--- NOTE | 2019-11-18 01:45 | ECG_ITS ---
Measurements Intervals [place] Rate: 77 P: 81 IA: 141 QRS: -15 QRSD: 114 T: 30 QT: 416 QTc: 471 SINUS RHYTHM POSSIBLE LATERAL MYOCARDIAL INFARCTION , OF INDETERMINATE AGE No previous ECG available for comparison Electronically Signed On 11-18-2019 18:03:42 ICE CREAM VAULT WORKER by Meghan Stout M.D. [id number]
--- NOTE | 2019-11-18 02:02 | PC.PHAR ---
Vancomycin is continued from ER at a dosage of 1250mg IVPB every 24 hours to produce a predicted trough level of 13.82 (population based pharmacokinetic analysis). A trough level has been ordered from the lab to be obtained before the fourth dose to confirm and adjust if needed.
[2019-11-18 02:42] LABS: Magnesium 2.1 mg/dL (1.7-2.3); Troponin 5 6HR 36.87 ng/mL (0-10); Troponin 5 6HR Delta 3.87 ng/L (0-12)
[2019-11-18] MEDS: FUROsemide 10 mg/mL SDV 2mL 20 MG IVP (03:22)
[2019-11-18 03:31] LABS: Iron 14 ug/dL (37-145)
[2019-11-18 03:39] LABS: Cortisol Random 6.56 mcg/dL (2.47-19.5)
[2019-11-18 03:46] LABS: Vitamin B12 964 pg/mL (232-1245)
[2019-11-18] MEDS: morphine 4 mg/mL SDV 1 mL 2 MG IVP (08:28)
[2019-11-18] MEDS: pantoprazole DR 40 mg Tablet PO (08:34)
[2019-11-18] MEDS: propranolol 20 mg Tablet 60 MG PO (08:56)
--- NOTE | 2019-11-18 14:34 | PC.NURSE ---
Discharge note Patient discharge instructions given per physician orders with new meds and side effects taught. Patient and spouse verbalized understanding. IV removed with catheter intact. Pressure dressing applied, patient tolerated well.
--- NOTE | 2019-11-18 19:13 | P.DS_ITS ---
Discharge Providers Date of Admission: 11/18/19 00:20 Date of Discharge: November 18, 2019 Attending Provider at Admission: Mojgan Solorio MD Attending Provider at Discharge: Hieu Hannon Primary Care Provider: Henrik Foss DO Diagnoses at Discharge Discharge Diagnosis (1) Anemia: Status: Acute (2) Dementia: Status: Acute (3) S/P lumbar fusion: Status: Acute (4) Brain mass: Status: Acute (5) Fibromyalgia: Status: Acute Reason for Visit Reason for Visit: Reason For Visit: BACK PAIN Hospital Course Hospital Course: 74-year-old lady was admitted for assessment of altered mental status, with lethargy, noted to have fever up to 101.9 at presentation, with congestive changes on imaging. She was kept NPO on bed rest as a precaution. She was empirically started on Primaxin. Her work-up regarding infection was not remarkable. Suspicion of central nervous system infection was very low, and this morning she was completely awake and alert back to her usual self, and with her and her eager to return home. On CT lumbar spine she was found to have small postoperative hematomas or seromas without evidence of abscess. No purulent drainage noted at the wound examination, without any superficial erythema or other indication of infection. Chest x-ray was without any suggestion of pneumonia. Influenza was negative. Urinalysis not suggestive of UTI. She had no GI symptoms, no other integumentary symptoms of acute infection. TSH was normal. Random serum cortisol was on the low side, however, it was done early in the morning, and she also did not have any other symptoms of adrenal crisis. She has no headache, no neck pain or stiffness, does have some back pain in the lumbar spine, but otherwise says she feels well. Due to suspicion of microaspiration she will complete a course of Levaquin and Flagyl. She and her were instructed to be cautious with oxycodone as it may contribute to lethargy, and put her at high risk of aspiration. Final blood culture needs to be followed up. Requested that she follow-up with her surgeon within the week. Congestive changes are thought to be due to fluid overload on presentation. She started on Lasix for 5 days, and is referred for outpatient echocardiogram. She has no chest pain, there is no sign of acute ischemia on cardiac work-up. Her will be staying with her and is well aware and agreeable to bring her back to the hospital in case there is any recurrence of lethargy, fever or other unusual symptoms. Physical Exam Const: COMMON NORMALS: no apparent distress and oriented x3 OTHER: She is forgetful due to her dementia but otherwise he is keenly alert, conversant, and very pleasant. is at bedside. HENMT: COMMON NORMALS: oropharynx normal Neck/C-Spine: COMMON NORMALS: no JVD Resp: COMMON NORMALS: normal respiratory effort and clear to auscultation bilaterally AUSCULTATION: clear to auscultation bilaterally Cardio: COMMON NORMALS: no JVD, regular rhythm, S1 normal heart sound, S2 normal heart sound and no murmurs RHYTHM: regular rhythm HEART SOUNDS: S1 normal and S2 normal GI: COMMON NORMALS: normal to inspection, nondistended, normoactive bowel sounds, soft to palpation and non-tender PALPATION: Yes soft Back/Pelvis: OTHER: Wound at lumbar spine healing well, without any erythema, any bleeding or purulent discharge. Extremity: COMMON NORMALS: no joint enlargement and no pedal edema Neuro: COMMON NORMALS: oriented x3 and moves all extremities Skin: COMMON NORMALS: no rashes or lesions noted GENERAL SKIN EXAM: no rashes or lesions noted Urinary Catheter Management^: John: Cath Placed During This Visit: yes, but has since been removed by the nurse Reason for Continuing Indwelling Catheter: Does Not Meet Criteria Urinary Catheter Date of Insertion: 11/17/19 Urinary Catheter Time of Insertion: 20:42 Date Urinary Catheter Removed: 11/18/19 Time Urinary Catheter Discontinued: 11:20 Discharge Data Data Completed and Pending: Completed Studies During Hospitalization Category Date Time Status CT head wo con* 7 [id number] Urgent Cat Scan 11/17/19 19:[address] lumbar spine w con [id number] Urgent Cat Scan 11/17/19 19:41 Completed XR chest 1V sophie ble [id number] Stat Exams 11/17/19 19:41 Completed Pending at discharge Category Date Time Status Blood Culture Sta t Lab 11/17/19 20:48 Results Urine Culture Sta t Lab 11/17/19 20:38 Received Labs from last 24 hours 11/18/19 11/18/19 11/18/19 02:10 02:10 02:10 WBC RBC Hgb Hct MCV MCH MCHC RDW Plt Count MPV Total Counted Segmented Neutroph ils Lymphocytes (Manua l) Monocytes (Manual) Absolute Monocytes Eosinophils (Manua l) Absolute Eosinophi ls Platelet Estimate Hypochromasia Poikilocytosis Anisocytosis Ovalocytes PT INR Specimen Type Sample Site ABG pH ABG pCO2 ABG pO2 ABG HCO3 ABG Base Excess Jensen Test Hematocrit O2 Delivery Device Lawn Sprinkler Installer ID Sodium Potassium Chloride Carbon Dioxide Anion Gap BUN Creatinine Glucose Lactic Acid Calcium Magnesium 2.1 Iron 14 L Total Bilirubin AST ALT Alkaline Phosphata se Ammonia Troponin I 6 Hour Troponin I Hi Sens Del Troponin T Baselin e Troponin T 120 Min [place] Troponin T NT-Pro-B Natriuret Pep Total Protein Albumin Globulin Lipase Vitamin B12 964 TSH Random Cortisol 6.56 Urine Color Urine Appearance Urine pH Ur Specific Gravit y Urine Protein Urine Glucose (UA) Urine Ketones Urine Occult Blood Urine Nitrate Urine Bilirubin Urine Urobilinogen Ur Leukocyte Mckenzie ase Urine RBC Urine WBC Ur Squamous Epith Cells Urine Bacteria Urine Mucus Urine Opiates Scre en Ur Barbiturates Sc reen Ur Phencyclidine S crn Ur Amphetamines Sc reen U Benzodiazepines Scrn Urine Cocaine Scre en U Marijuana (THC) Screen Influenza Type A A g POC Influenza B Ag 11/18/19 11/18/19 11/17/19 02:10 00:16 22:04 WBC RBC Hgb Hct MCV MCH MCHC RDW Plt Count MPV Total Counted Segmented Neutroph ils Lymphocytes (Manua l) Monocytes (Manual) Absolute Monocytes Eosinophils (Manua l) Absolute Eosinophi ls Platelet Estimate Hypochromasia Poikilocytosis Anisocytosis Ovalocytes PT INR Specimen Type Sample Site ABG pH ABG pCO2 ABG pO2 ABG HCO3 ABG Base Excess Jensen Test Hematocrit O2 Delivery Device Lawn Sprinkler Installer ID Sodium Potassium Chloride Carbon Dioxide Anion Gap BUN Creatinine Glucose Lactic Acid Calcium Magnesium Iron Total Bilirubin AST ALT Alkaline Phosphata se Ammonia Troponin I 6 Hour 36.87 H Troponin I Hi Sens Del 3.87 Troponin T Baselin e Troponin T 120 Min [place] 32.21 H Delta Troponin T -0.79 L NT-Pro-B Natriuret Pep 02052 H Total Protein Albumin Globulin Lipase Vitamin B12 TSH 3.31 Random Cortisol Urine Color Urine Appearance Urine pH Ur Specific Gravit y Urine Protein Urine Glucose (UA) Urine Ketones Urine Occult Blood Urine Nitrate Urine Bilirubin Urine Urobilinogen Ur Leukocyte Mckenzie ase Urine RBC Urine WBC Ur Squamous Epith Cells Urine Bacteria Urine Mucus Urine Opiates Scre en Ur Barbiturates Sc reen Ur Phencyclidine S crn Ur Amphetamines Sc reen U Benzodiazepines Scrn Urine Cocaine Scre en U Marijuana (THC) Screen Influenza Type A A g POC Influenza B Ag 11/17/19 11/17/19 11/17/19 20:39 20:38 20:38 WBC RBC Hgb Hct MCV MCH MCHC RDW Plt Count MPV Total Counted Segmented Neutroph ils Lymphocytes (Manua l) Monocytes (Manual) Absolute Monocytes Eosinophils (Manua l) Absolute Eosinophi ls Platelet Estimate Hypochromasia Poikilocytosis Anisocytosis Ovalocytes PT INR Specimen Type Sample Site ABG pH ABG pCO2 ABG pO2 ABG HCO3 ABG Base Excess Jensen Test Hematocrit O2 Delivery Device Lawn Sprinkler Installer ID Sodium Potassium Chloride Carbon Dioxide Anion Gap BUN Creatinine Glucose Lactic Acid Calcium Magnesium Iron Total Bilirubin AST ALT Alkaline Phosphata se Ammonia Troponin I 6 Hour Troponin I Hi Sens Del Troponin T Baselin e Troponin T 120 Min [place] Troponin T NT-Pro-B Natriuret Pep Total Protein Albumin Globulin Lipase Vitamin B12 TSH Random Cortisol Urine Color Brown Urine Appearance Cloudy Urine pH 5 Ur Specific Gravit y 1.020 Urine Protein Trace Urine Glucose (UA) Norm Urine Ketones 1+ H Urine Occult Blood Trace H Urine Nitrate Negative Urine Bilirubin 1+ H Urine Urobilinogen Norm Ur Leukocyte Mckenzie ase Negative Urine RBC 10-15 H Urine WBC 0-4 H Ur Squamous Epith Cells None Urine Bacteria 1+ H Urine Mucus 2+ Urine Opiates Scre en Negative Ur Barbiturates Sc reen Negative Ur Phencyclidine S crn 26 Ur Amphetamines Sc reen Negative U Benzodiazepines Scrn Negative Urine Cocaine Scre en Negative U Marijuana (THC) Screen Negative Influenza Type A A g Negative POC Influenza B Ag Negative 11/17/19 11/17/19 11/17/19 20:33 20:16 20:16 WBC RBC Hgb Hct MCV MCH MCHC RDW Plt Count MPV Total Counted Segmented Neutroph ils Lymphocytes (Manua l) Monocytes (Manual) Absolute Monocytes Eosinophils (Manua l) Absolute Eosinophi ls Platelet Estimate Hypochromasia Poikilocytosis Anisocytosis Ovalocytes PT INR Specimen Type Arterial Sample Site Radial, right ABG pH 7.48 H ABG pCO2 35.6 ABG pO2 62.0 L ABG HCO3 26.5 H ABG Base Excess 2.9 H Jensen Test Pos Hematocrit 26.5 L O2 Delivery Device Room air Lawn Sprinkler Installer ID ellpe Sodium Potassium Chloride Carbon Dioxide Anion Gap BUN Creatinine Glucose Lactic Acid Calcium Magnesium Iron Total Bilirubin AST ALT Alkaline Phosphata se Ammonia Troponin I 6 Hour Troponin I Hi Sens Del Troponin T Baselin e 33 H Troponin T 120 Min [place] Troponin T NT-Pro-B Natriuret Pep 77523 H Total Protein Albumin Globulin Lipase Vitamin B12 TSH Random Cortisol Urine Color Urine Appearance Urine pH Ur Specific Gravit y Urine Protein Urine Glucose (UA) Urine Ketones Urine Occult Blood Urine Nitrate Urine Bilirubin Urine Urobilinogen Ur Leukocyte Mckenzie ase Urine RBC Urine WBC Ur Squamous Epith Cells Urine Bacteria Urine Mucus Urine Opiates Scre en Ur Barbiturates Sc reen Ur Phencyclidine S crn Ur Amphetamines Sc reen U Benzodiazepines Scrn Urine Cocaine Scre en U Marijuana (THC) Screen Influenza Type A A g POC Influenza B Ag 11/17/19 11/17/19 11/17/19 20:16 20:16 20:16 WBC RBC Hgb Hct MCV MCH MCHC RDW Plt Count MPV Total Counted Segmented Neutroph ils Lymphocytes (Manua l) Monocytes (Manual) Absolute Monocytes Eosinophils (Manua l) Absolute Eosinophi ls Platelet Estimate Hypochromasia Poikilocytosis Anisocytosis Ovalocytes PT 15.70 H INR 1.21 H Specimen Type Sample Site ABG pH ABG pCO2 ABG pO2 ABG HCO3 ABG Base Excess Jensen Test Hematocrit O2 Delivery Device Lawn Sprinkler Installer ID Sodium Potassium Chloride Carbon Dioxide Anion Gap BUN Creatinine Glucose Lactic Acid 1.9 Calcium Magnesium Iron Total Bilirubin AST ALT Alkaline Phosphata se Ammonia 18 Troponin I 6 Hour Troponin I Hi Sens Del Troponin T Baselin e Troponin T 120 Min [place] Troponin T NT-Pro-B Natriuret Pep Total Protein Albumin Globulin Lipase Vitamin B12 TSH Random Cortisol Urine Color Urine Appearance Urine pH Ur Specific Gravit y Urine Protein Urine Glucose (UA) Urine Ketones Urine Occult Blood Urine Nitrate Urine Bilirubin Urine Urobilinogen Ur Leukocyte Mckenzie ase Urine RBC Urine WBC Ur Squamous Epith Cells Urine Bacteria Urine Mucus Urine Opiates Scre en Ur Barbiturates Sc reen Ur Phencyclidine S crn Ur Amphetamines Sc reen U Benzodiazepines Scrn Urine Cocaine Scre en U Marijuana (THC) Screen Influenza Type A A g POC Influenza B Ag 11/17/19 11/17/19 20:16 20:16 WBC 6.4 RBC 2.97 L Hgb 8.4 L Hct 26.9 L MCV 90.6 MCH 28.3 MCHC 31.2 RDW 17.2 H Plt Count 247 MPV 10.8 H Total Counted 100 Segmented Neutroph ils 66 Lymphocytes (Manua l) 29 Monocytes (Manual) 3.0 Absolute Monocytes 0.2 Eosinophils (Manua l) 2 Absolute Eosinophi ls 0.1 Platelet Estimate Normal Hypochromasia 1+ H Poikilocytosis 1+ H Anisocytosis 1+ H Ovalocytes 1+ H PT INR Specimen Type Sample Site ABG pH ABG pCO2 ABG pO2 ABG HCO3 ABG Base Excess Jensen Test Hematocrit O2 Delivery Device Lawn Sprinkler Installer ID Sodium 140 Potassium 3.0 L Chloride 103 Carbon Dioxide 24 Anion Gap 16.0 BUN 11 Creatinine 0.7 Glucose 101 Lactic Acid Calcium 8.8 Magnesium 1.6 L Iron Total Bilirubin 0.7 AST 36 H ALT 14 Alkaline Phosphata se 65 Ammonia Troponin I 6 Hour Troponin I Hi Sens Del Troponin T Baselin e Troponin T 120 Min [place] Troponin T NT-Pro-B Natriuret Pep Total Protein 5.9 L Albumin 2.7 L Globulin 3.2 Lipase 7 L Vitamin B12 TSH Random Cortisol Urine Color Urine Appearance Urine pH Ur Specific Gravit y Urine Protein Urine Glucose (UA) Urine Ketones Urine Occult Blood Urine Nitrate Urine Bilirubin Urine Urobilinogen Ur Leukocyte Mckenzie ase Urine RBC Urine WBC Ur Squamous Epith Cells Urine Bacteria Urine Mucus Urine Opiates Scre en Ur Barbiturates Sc reen Ur Phencyclidine S crn Ur Amphetamines Sc reen U Benzodiazepines Scrn Urine Cocaine Scre en U Marijuana (THC) Screen Influenza Type A A g POC Influenza B Ag Vitals: Last Vital Signs Temp 98.9 F 11/18/19 11:40 Pulse 82 11/18/19 14:36 Resp 18 11/18/19 11:40 BP 163/84 11/18/19 11:40 Pulse Ox 93 11/18/19 14:36 Discharge Plan Discharge Patient Disposition: Home, Self-Care Condition: Stable Prescriptions: New Levaquin 750 mg tablet 750 mg PO DAILY 6 Days Qty: 6 RF: 0 Flagyl 500 mg tablet 500 mg PO Q8H 6 Days Qty: 18 RF: 0 Lasix 20 mg tablet 20 mg PO DAILY 5 Days Qty: 5 RF: 0 Continued donepezil 10 mg Tablet 10 mg PO DAILY RF: 0 propranolol 60 mg Tablet 60 mg PO DAILY RF: 0 oxycodone-acetaminophen 5-325 mg Tablet 1 tab PO Q4H PRN (Reason: Pain) RF: 0 gabapentin 300 mg Capsule 300 mg PO BEDTIME RF: 0 gabapentin 300 mg Capsule 600 mg PO DAILY RF: 0 pravastatin 20 mg Tablet 20 mg PO DAILY RF: 0 memantine 10 mg Tablet 10 mg PO BID RF: 0 omeprazole 20 mg Tablet,Delayed Release (Dr/Ec) 20 mg PO BID RF: 0 Discharge Orders: Discharge Order (Routine); Ordered 11/18/19 Ordered By: Hieu Hannon Other Ambulatory Orders: CV echo complete* [id number] (Routine) Timeframe: 3 Days Facility: [facility] - Location: Radiology Ordered By: Hieu Hannon Referrals: Back, surgeon [Other] - 4-7 days (please talk to Dr. Foss about a referral for a back surgeon) Henrik Foss, [Primary Care Provider] - 11/24/19 10:40 am Discharge Diet: Cardiac Discharge Activity: Limit activity as instructed Patient Instructions: Anemia, Furosemide (By mouth), Metronidazole (By mouth), Levofloxacin (By mouth), Iron Rich Diet (DC), Dementia (GEN), Lumbar Spinal Fusion (DC) Activity Restrictions/Additional Instructions: Please have your primary care doctor follow-up on final blood culture results as well as echocardiogram results. Congestion seen on chest x-ray suspected due to IV fluid he had received, however, we are checking an ultrasound of your heart to better assess its function. Please be very cautious with pain medications and avoid oxycodone in case you are sleepy. Please make sure to maintain strict aspiration precautions. Eat or drink only if fully awake, upright. If at home you experience recurrence of fevers, any recurrence of confusion, persistent discharge or pus from your wound, or other abnormal symptoms please seek medical attention without delay. 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
== END 2019-11-18 14:15 | disposition home or self-care (01) | DRG 948 ==
LOC: ER 11-18 00:14 → MEDSURG 11-18 00:50
PROVIDERS: Admitting Provider Student in an Organized Health Care Education/Training Program; Emergency Provider Emergency Medicine; Family Provider Family Medicine; PCP Family Medicine; Visit Provider Internal Medicine
DX: R41.82 Altered mental status, unspecified (principal); T40.605A Adverse effect of unspecified narcotics, initial encounter; Y92.009 Unspecified place in unspecified non-institutional (private) residence as the place of occurrence of the external cause; M54.9 Dorsalgia, unspecified; M79.7 Fibromyalgia; M32.9 Systemic lupus erythematosus, unspecified; Z98.1 Arthrodesis status; G93.89 Other specified disorders of brain; I51.7 Cardiomegaly; F03.90 Unspecified dementia, unspecified severity, without behavioral disturbance, psychotic disturbance, mood disturbance, and anxiety; D64.9 Anemia, unspecified; R50.82 Postprocedural fever; R53.83 Other fatigue
CPT/HCPCS: 12345; 36600; 51702; 70450; 71045; 72132; 80053; 80307; 81001; 82140; 82533; 82607; 82803; 83540; 83605; 83690; 83735; 83880; 84443; 84484; 85007; 85027; 85610; 87040; 87086; 87804; 93005; 96372; 96375; 97116; 97161; 99284; J0131; J0743; J1644; J1940; J2270; J2405; J3370; J3475; J7030; J7050; Q9967

== ENCOUNTER → 2019-12-24 08:55 | Outpatient (BNVA) | payer MEDICARE, SELFPAY | PROVIDERS: Family Provider Family Medicine; PCP Family Medicine; Referring Provider Family Medicine; Visit Provider Obstetrics & Gynecology Female Pelvic Medicine and Reconstructive Surgery | DX: N30.90 Cystitis, unspecified without hematuria (principal); N34.0 Urethral abscess; N36.8 Other specified disorders of urethra | CPT/HCPCS: 80053 ==

== ENCOUNTER → 2019-12-25 10:28 | Outpatient (BNVA) | payer MEDICARE, SELFPAY | PROVIDERS: Family Provider Family Medicine; PCP Family Medicine; Visit Provider Obstetrics & Gynecology Female Pelvic Medicine and Reconstructive Surgery | DX: N34.0 Urethral abscess (principal) | CPT/HCPCS: 88305 ==

== ENCOUNTER 2019-12-26 14:21 | Outpatient (CLI) | payer MEDICARE, SELFPAY ==
--- NOTE | 2019-12-26 14:35 | XR_ITS ---
WS: [id number] Lumbar spine, 3 views, 12/26/2019 Clinical Data: LUMBAR PAIN/INTERVERTEBRAL DISC DISORDER W/RADICULOPATHY Comparison: Lumbar spine, 10/29/2017. Findings: The patient has a posterior lumbar fusion with bilateral pedicle screws connected with rods and L4-L5 . There is an artificial disc at L4-L5. There is disc space narrowing at L2-L3 and L5-S1 Anterior osteoarthritic spurring is prominent at L2-L3. No compression fractures are seen. There is a mild dextroscoliosis of the lumbar spine. The transverse processes and SI joints are normal. There i s a calcified leiomyoma within the uterus. XR/XR lumbar spine 2-3V* [id number] Impression: 1. Posterior lumbar fusion with artificial disc at L4-L5. 2. Degenerative disc changes at L2-L3 and L5-S1. 3. Osteoarthritis at L2-L3.
== END 2019-12-26 14:22 | disposition home or self-care (01) ==
LOC: RADWPI 14:33
PROVIDERS: Family Provider Family Medicine; PCP Family Medicine; Visit Provider Neurological Surgery
DX: M51.16 Intervertebral disc disorders with radiculopathy, lumbar region (principal); M47.896 Other spondylosis, lumbar region; M47.897 Other spondylosis, lumbosacral region; Z98.1 Arthrodesis status
CPT/HCPCS: 72100

== ENCOUNTER 2020-03-05 10:43 | Outpatient (CLI) | payer MEDICARE, SELFPAY ==
--- NOTE | 2020-03-05 10:58 | XR_ITS ---
WS: [id number] XR chest 2V* [id number] REASON FOR EXAM: CONGESTIVE HEART FAILURE/DYSPNEA/PERIPHERAL EDEMA FINDINGS: Cardiomegaly is noted perihilar haziness changes are noted with mild edema. The above findings are increased since November 17, 2019. There is no pneumonia. There is small amount of bilateral pleural effusion. XR/XR chest 2V* [id number] IMPRESSION: Early congestive heart failure.
== END 2020-03-05 10:44 | disposition home or self-care (01) ==
LOC: RAD 10:50
PROVIDERS: PCP Family Medicine; Visit Provider Family Medicine
DX: I50.9 Heart failure, unspecified (principal); R60.9 Edema, unspecified; R06.00 Dyspnea, unspecified
CPT/HCPCS: 71046

== ENCOUNTER 2020-04-15 12:28 | Outpatient (CLI) | payer MEDICARE, SELFPAY ==
--- NOTE | 2020-04-15 12:45 | USCV_ITS ---
Sofia Whittington Age: 74 Gender: F : 1945 Exam Date: 04/15/2020 12:44 Ordering Phys: Nona Campbell MD ([email or web address]) Technologist: Heather Sotelo Exam Location: [facility] [place] Indication: SOB BP: / HR: 66 Rhythm: Sinus Technical Quality: MEASUREMENTS (Male / Female) Normal Values 2D ECHO LV Diastolic Diameter PLAX 4.4 cm 4.2 - 5.9 / 3.9 - 5.3 cm LV Systolic Diameter PLAX 3.5 cm LV Chamber Size 3.9 cm IVS Diastolic Thickness 1.4 cm 0.6 - 1.0 / 0.6 - 0.9 cm IVS Systolic Thickness 1.6 cm LVPW Diastolic Thickness 1.6 cm 0.6 - 1.0 / 0.6 - 0.9 cm LVPW Systolic Thickness 1.6 cm RV Chamber Size 1.7 cm LVOT Diameter 2.0 cm LV Ejection Fraction 2D Teich 44.0 % LV Ejection Fraction MOD 2C 32.9 % LV Ejection Fraction 2C AL 30.4 % LA Diameter 4.0 cm LA Width 4.0 cm LA Height 5.3 cm RA Width 2.6 cm RA Height 4.7 cm Aorta at Sinotubular Diameter 2.5 cm M-MODE LV Diastolic Diameter MM 4.6 cm 4.2 - 5.9 / 3.9 - 5.3 cm LV Systolic Diameter MM 2.9 cm LV Ejection Fraction MM Teich 66.6 % IVS Diastolic Thickness MM 1.1 cm 0.6 - 1.0 / 0.6 - 0.9 cm IVS Systolic Thickness MM 1.4 cm LVPW Diastolic Thickness MM 1.0 cm 0.6 - 1.0 / 0.6 - 0.9 cm LVPW Systolic Thickness MM 1.2 cm RV Diastolic Diameter MM 0.7 cm Aortic Annulus Diameter 2.8 cm LA Ao Ratio MM 1.4 MV E Point Septal Separation 1.2 cm DOPPLER AV Peak Velocity 116.0 cm/s LVOT Peak Velocity 73.0 cm/s AV Area Cont Eq vti 1.9 cm squared AV Area Cont Eq pk 2.0 cm squared MV Area PHT 3.3 cm squared Mitral E to A Ratio 1.2 MV E' Velocity 5.0 cm/s Mitral E to MV E' Ratio 14.5 Mitral E to LV E' Lateral Ratio 13.2 Mitral E to LV E' Septal Ratio 16.5 TR Peak Velocity 248.5 cm/s TR Peak Gradient 24.7 mmHg TR Mean Velocity 178.2 cm/s TR Mean Gradient 14.1 mmHg TR Velocity Time Integral 66.8 cm TV Peak E Velocity 67.0 cm/s Right Atrial Pressure 3.0 mmHg Pulmonary Artery Systolic Pressu 27.7 mmHg PV Peak Velocity 67.0 cm/s RV Acceleration Time 0.1 s RV Ejection Time 0.3 s RV AcT/ET 0.3 FINDINGS Left Ventricle Normal left ventricular cavity size. Normal left ventricular systolic function. Left ventricular ejection fraction is estimated at 55 %. In the absence of atrial fibrillation diastolic function cannot be assessed accurately. Right Ventricle The right ventricle is normal in size and function. Right Atrium The right atrium is normal in size. Left Atrium Moderately increased left atrial size. Mitral Valve Mildly thickened mitral valve. No mitral valve stenosis. No mitral valve regurgitation. Aortic Valve Moderate aortic valve calcification. No aortic valve stenosis. Mild aortic valve regurgitation. Tricuspid Valve Moderate tricuspid valve regurgitation. Pulmonic Valve Mild pulmonary valve regurgitation. Pericardium Normal pericardium without effusion. Aorta Normal ascending aorta dimension. CONCLUSIONS 1-Normal left ventricular cavity size. Normal left ventricular systolic function. Left ventricular ejection fraction is estimated at 55 %. In the absence of atrial fibrillation diastolic function cannot be assessed accurately. 2-Moderate aortic valve calcification. No aortic valve stenosis. Mild aortic valve regurgitation. 3-Mildly thickened mitral valve. No mitral valve stenosis. No mitral valve regurgitation. 4-Moderate tricuspid valve regurgitation. 5-Mild pulmonary valve regurgitation. 6-Pulmonary artery systolic pressure is within normal limits. 7-There is no pericardial effusion. 8-There are no prior echocardiogram studies to compare. Nona Campbell MD (Electronically Signed) Final Date: 17 April 2020 21:22 S
== END 2020-04-15 12:29 | disposition home or self-care (01) ==
LOC: US 12:29
PROVIDERS: PCP Family Medicine; Visit Provider Internal Medicine Cardiovascular Disease
DX: R06.02 Shortness of breath (principal); I08.3 Combined rheumatic disorders of mitral, aortic and tricuspid valves
CPT/HCPCS: 93306